=== PATIENT | female | born 1965 | race Caucasian/White ===

== ENCOUNTER → 2016-07-18 | Outpatient (CLI) | payer BC ==
[~2016-07-18] MED LIST: ATV/1 PO; LISI-729 PO
== END | disposition home or self-care (01) ==
LOC: C.RDSM 08:45
PROVIDERS: ATTEND Physical Medicine & Rehabilitation Sports Medicine
DX: S52.252D Displaced comminuted fracture of shaft of ulna, left arm, subsequent encounter for closed fracture with routine healing (principal); S52.36 Segmental fracture of shaft of radius; X58.XXXD Exposure to other specified factors, subsequent encounter

== ENCOUNTER → 2016-08-17 | Outpatient (CLI) | payer BC | END | disposition home or self-care (01) | LOC: C.RDSM 14:56 | PROVIDERS: ATTEND Physical Medicine & Rehabilitation Sports Medicine | DX: S52.252D Displaced comminuted fracture of shaft of ulna, left arm, subsequent encounter for closed fracture with routine healing (principal); X58.XXXD Exposure to other specified factors, subsequent encounter ==

== ENCOUNTER → 2016-11-23 | Outpatient (CLI) | payer BC ==
[~2016-11-23] MED LIST changes: +OPTIRAY 320 IV PRN
--- NOTE | 2016-11-23 12:20 | DIAGNOSTIC IMAGING REPORT ---
CT ABD/PELVIS IV AND ORAL CONT CLINICAL HISTORY: Right lower quadrant abdominal pain COMPARISON STUDY: None. TECHNIQUE: Following the IV administration of 94 mL of Optiray-320, CT scan of the abdomen and pelvis was performed from the lung bases to the proximal femurs. Images are reviewed in the axial, sagittal, and coronal planes. IV contrast was administered without complication. CT DOSE: 250.79 mGy.cm FINDINGS: Lower chest: There is a calcified left lower lobe granuloma. Liver: The contrast-enhanced liver is normal in size, contour, and attenuation. There is no intrahepatic biliary ductal dilatation. The hepatic veins and portal veins are patent. Gallbladder: Unremarkable. Spleen: Normal in size and attenuation. Pancreas: Unremarkable. Adrenal glands: Unremarkable. Kidneys: There is a 4 mm left renal cyst. There is no hydronephrosis. Bowel: There are no transition zones indicate bowel obstruction. The appendix appears normal. There is scattered colonic diverticula. There is no acute diverticulitis. Peritoneum: There is no intraperitoneal free air or abdominal ascites. Vasculature: The abdominal aorta is normal in course and caliber. Adenopathy: None. Pelvic viscera: There is borderline thickening of the endometrium. Skeletal structures: No destructive osseous lesions are seen. IMPRESSION: 1. No evidence of bowel obstruction. No evidence of free air 2. Normal appendix 3. No evidence of acute diverticulitis 4. Borderline thickening of the endometrium. Electronically signed by: Joby Kwon M.D. 11/23/2016 12:19 PM Dictated Date/Time: 11/23/2016 12:14 PM
== END | disposition home or self-care (01) ==
LOC: C.CTS 10:23
PROVIDERS: ATTEND Family Medicine
DX: R10.31 Right lower quadrant pain (principal)

== ENCOUNTER → 2017-05-31 | Outpatient (CLI) | payer BC ==
[~2017-05-31] MED LIST changes: -OPTIRAY 320 IV PRN
--- NOTE | 2017-05-31 14:59 | DIAGNOSTIC IMAGING REPORT ---
LEFT FOREARM 2 VIEWS CLINICAL HISTORY: Follow-up fracture. FINDINGS: AP and lateral views of the left forearm are compared to study dated 08/17/2016. There is disuse osteopenia. There is posttraumatic deformity involving the shafts of the radius and ulna status post buttress plate fixation. The Orthopedic hardware appears intact. No acute fracture is seen. The wrist and elbow joints are grossly maintained. Mild soft tissue swelling is suggested in the forearm. IMPRESSION: Posttraumatic deformity and postoperative change is identified in the radius and ulna as above. No acute fracture is identified. Electronically signed by: Eh Gonzalez M.D. 05/31/2017 2:58 PM Dictated Date/Time: 05/31/2017 2:57 PM
== END | disposition home or self-care (01) ==
LOC: C.RDSM 14:16
PROVIDERS: ATTEND Physician Assistant
DX: S52.36 Segmental fracture of shaft of radius (principal); X58.XXXD Exposure to other specified factors, subsequent encounter

== ENCOUNTER → 2017-06-23 | Outpatient (CLI) | payer OTHER | END | disposition home or self-care (01) | LOC: C.CPL 08:41 | PROVIDERS: ATTEND Physician Assistant | DX: T84.84XA Pain due to internal orthopedic prosthetic devices, implants and grafts, initial encounter (principal); Y83.1 Surgical operation with implant of artificial internal device as the cause of abnormal reaction of the patient, or of later complication, without mention of misadventure at the time of the procedure ==

== ENCOUNTER → 2017-06-27 | Day surgery (SDC) | payer BC, OTHER ==
[2017-06-09 13:17] VITALS: Ht 152.4 cm; Wt 51.4 kg
[~2017-06-27] VITALS: Ht 152.4 cm; Wt 51.4 kg
[~2017-06-27] MED LIST changes: +ATROPINE SULFATE 0.1 MG/ML 5ML SYR IV PRN; +BUPIVACAINE 0.5 % 5 MG/1 ML MPF 30ML VIAL ONE; +BUPIVACAINE/EPINEPHRINE 0.5% MPF 1:200,000 30 ML VIAL ONE; +CEFAZOLIN 2000MG IV PUSH 10 ML IV SCH; +DEXAMETHASONE SOD INJ 4 MG/ML VIAL ONE; +FENTANYL CITRATE INJ 50 MCG/1 ML 2 ML VIAL IV PRN; +FENTANYL CITRATE INJ 50 MCG/1 ML 2 ML VIAL ONE; +KETOROLAC TROMETHAMINE 30 MG/ML VIAL IV. PRN; +LACTATED RINGER'S 1000ML 1,000 ML IV SCH; +LIDOCAINE HCL 2% 2 ML VIAL (20MG/ML) ONE; +MIDAZOLAM HCL 1 MG/ML 2ML VIAL ONE; +ONDANSETRON INJ 2 MG/ML 2 ML VIAL IV PRN; +ONDANSETRON INJ 2 MG/ML 2 ML VIAL ONE; +PROPOFOL IV EMULSION 10 MG/ML 20 ML VIAL IV ONE; +SODIUM CHLORIDE 0.9% 1000ML 1,000 ML IV SCH
--- NOTE | 2017-06-27 09:35 | History & Physical Bridge Note ---
H&P Re-Evaluation Bridge Note: I have examined the patient, reviewed the History & Physical and in the interval since the performance of the History & Physical I have noted the following changes of clinical significance: No changes noted.consent reviewed.
--- NOTE | 2017-06-27 09:37 | Discharge Instructions ---
Discharge Instructions Date of Service Jun 27, 2017. Visit Reason for Visit: S/P Left Both Bone Forearm Fracture Discharge Discharge Diagnosis / Problem: ssame Discharge Goals Goal(s): Decrease discomfort Medications Stopped Medications Name(s): na Restart Stopped Medication(s): use all scripts as directed Activity Recommendations Activity Limitations: resume your previous activity Lifting Limitations: no more than 10 pounds Exercise/Sports Limitations: as tolerated May Resume Sexual Activity: when tolerated Shower/Bathe: keep incision dry Driving or Machine Use: resume 1 day after discharge Anesthesia . Post Anesthesia Instructions: If you have had General Anesthesia or IV Sedation: * Do not drive today. * Resume driving when surgeon permits. * Do not make important decisions or sign legal documents today. * Call surgeon for: 1. Temperature elevations greater than 101 degrees F. 2. Uncontrollable pain. 3. Excessive bleeding. 4. Persistent nausea and vomiting. 5. Medication intolerance (nausea, vomiting or rash). * For nausea and vomiting use only clear liquids such as: tea, soda, bouillon until nausea subsides, then gradually increase diet as tolerated. * If you have any concerns or questions, call your surgeon's office. If physician is unavailable and it is an emergency, call 911 or go to the nearest emergency room. . Instructions / Follow-Up Instructions / Follow-Up DIET: * Resume previous diet. MEDICATIONS: * Please take your prescriptions as instructed at your pre-op appointment and/ or see medication discharge instructions listed above. * If concerns develop, call your physician's office at . SPECIAL CARE INSTRUCTIONS: * Ice/Elevate as instructed. * Keep dressing clean, dry, intact. * Your surgical extremity may be discolored due to prepping agents used on the skin. A bluish-green tint is a normal variant and should not cause alarm. Call your doctor at [phone] if: * Temperature above 101 degrees * Pain not relieved by pain medicine ordered * There is increased drainage or redness from any incision * You have any unanswered questions, problems or concerns. FOLLOW UP VISIT: * If not already scheduled, please call the office at to schedule a follow-up appointment. Diet Recommendations Recommended Home Diet: resume previous diet Procedures Procedures Performed: removal ulnar plate and screws Pending Studies Studies pending at discharge: yes List of pending studies: removed plate Medical Emergencies . Who to Call and When: Medical Emergencies: If at any time you feel your situation is an emergency, please call 911 immediately. . Non-Emergent Contact Non-Emergency issues call your: Specialist Call Non-Emergent contact if: you have a fever, temperature is above 101.5, wound has increased drainage, wound has increased redness, you have any medication questions . . "Provider Documentation" section prepared by Jalen Mclaughlin. .
--- NOTE | 2017-06-27 10:28 | [facility] Post Operative Brief Note ---
Immediate Operative Summary Operative Date Jun 27, 2017. Pre-Operative Diagnosis s/p ORIF displaced ulna fracture Post-Operative Diagnosis same Procedure(s) Performed removal ulnar plate and screws Surgeon verónica Spring Production Supervisor Surgeon(s) alexandra Estimated Blood Loss trace Findings healed ulna fracture Fluids (cc crystalloids) 550cc Specimens plate and screws Drains none Anesthesia LMA Complication(s) None Disposition Recovery Room / PACU
--- NOTE | 2017-06-27 10:46 | [facility] Operative Report ---
Operative Report Operative Date Jun 27, 2017. Pre-Operative Diagnosis Forearm s/p ORIF displaced ulna fracture Post-Operative Diagnosis Left forearm same Procedure(s) Performed removal ulnar plate and screws left forearm Surgeon verónica Nib Adjuster Surgeon(s) alexandra CEBALLOS Estimated Blood Loss trace Findings Retained hardware left ulna Fluids (cc crystalloids) 550cc Specimens plate and screws Drains none Complication(s) None Disposition Recovery Room / PACU Indications This 52-year-old white female presented to the office with complaints of pain in her left forearm associated with her previous plate and screws. She had pain with placement of her arm on any hard surface. She elected to proceed with hardware removal in hopes of alleviating her pain. Description of Procedure Patient was taken to the operating room where she was given local anesthetic and general anesthetic. She was prepped and draped in usual sterile fashion. Please see Dr. Mclaughlin's operative report for specifics of the procedure. I was present for the entire case from initial patient positioning through final wound closure. Assistance was provided in tissue traction, hemostasis, and final wound closure. Patient was taken to the recovery room in satisfactory condition. I attest to the content of the Intraoperative Record and any orders documented therein. Any exceptions are noted below.
--- NOTE | 2017-06-27 10:47 | OPERATIVE REPORT ---
DATE OF OPERATION: 06/27/2017 SURGEON: Jalen Mclaughlin MD BRIM STITCHER: Devin Ruiz PA-C. No resident or fellow available. PREOPERATIVE DIAGNOSIS: Status post open reduction internal fixation both bones forearm fracture with symptomatic ulnar hardware. POSTOPERATIVE DIAGNOSIS: Same. OPERATION PERFORMED: Removal of ulnar plate and screws, left upper extremity. PERIOPERATIVE SITUATION: Medically cleared female who has recurrent irritability of the forearm when she rolls it over a tabletop and contacts the edge of the plate. At this point in time, she wants to proceed with plate removal. The fracture is healed. OPERATION: The patient appropriately identified, site verified, consent verified, 1 gram of Ancef confirmed as being given. The left upper extremity was injected sterilely with roughly 12 mL of 0.5% Marcaine plain and then the arm prepped and draped in usual routine fashion. Tourniquet was then inflated to 250 mmHg after exsanguination of limb with a rubber Esmarch bandage for a total of approximately 12 minutes. The old incision was then opened. Full thickness flaps raised, care taken to protect any sensory nerves. The plate was then palpated and the tissue over the plate was then incised with a thermal device and then lifted off over the plate. All 8 screws were identified. They were then removed, both combination of locking and nonlocking screws. The plate was then removed without difficulty. The prominence of the screw holes were then removed with a rongeur due to the fact that this was also subcutaneous and would give her issues. The wound was then copiously irrigated and then closed with 3-0 Vicryl and 3-0 running Prolene stitch and then a soft tissue dressing applied. The patient's estimated blood loss was trace. Crystalloid was 550 mL. No DVT prophylaxis required. Plate removed, the screws removed. ADDENDUM: The fracture was healed and no sign of any issues clinically. I attest to the content of the Intraoperative Record and any orders documented therein. Any exceptions are noted below. KAMILA
[2017-06-27 11:14] VITALS: BP 109/74; PULSE 59; TEMP 36.4; O2SAT 97
--- NOTE | 2017-06-27 12:01 | Anesthesia Progress Nt - [facility] ---
Anesthesia Post Op Note Date & Time Jun 27, 2017 at 12:00 Vital Signs Pain Intensity: 2 Vital Signs Past 12 Hours Date Time Temp Pulse Resp B/P (MAP) Pulse Ox O2 Delivery O2 Flow Rate FiO2 06/27/17 11:14 36.4 59 16 109/74 (86) 97 Room Air 06/27/17 11:08 67 12 99 06/27/17 11:08 67 12 06/27/17 11:08 67 12 06/27/17 11:08 67 12 99 06/27/17 11:07 63 13 06/27/17 11:07 62 13 98 06/27/17 11:07 36.6 98 Room Air 06/27/17 11:06 109/77 06/27/17 11:02 68 14 97 06/27/17 11:02 69 14 06/27/17 11:01 106/70 06/27/17 10:57 62 11 100 06/27/17 10:57 62 11 06/27/17 10:56 63 16 110/74 100 06/27/17 10:56 63 16 06/27/17 10:56 63 16 06/27/17 10:56 63 16 110/74 100 06/27/17 10:51 65 17 110/69 100 06/27/17 10:51 65 17 110/69 100 06/27/17 10:51 64 17 06/27/17 10:51 64 17 06/27/17 10:46 67 16 108/73 100 06/27/17 10:46 67 16 06/27/17 10:46 67 16 06/27/17 10:46 67 16 108/73 100 06/27/17 10:41 110/73 06/27/17 10:41 110/73 06/27/17 10:37 111/78 06/27/17 10:37 111/78 06/27/17 10:36 75 22 98 06/27/17 10:36 75 22 98 06/27/17 10:36 36.3 70 12 111/78 100 Mask 6 06/27/17 10:36 74 22 06/27/17 10:36 74 22 06/27/17 08:46 36.2 71 16 101/77 (85) 98 Room Air Notes Mental Status: alert / awake / arousable, participated in evaluation Pt Amnestic to Procedure: Yes Nausea / Vomiting: adequately controlled Pain: adequately controlled Airway Patency, RR, SpO2: stable & adequate BP & HR: stable & adequate Hydration State: stable & adequate Anesthetic Complications: no major complications apparent
== END | disposition home or self-care (01) ==
LOC: X.SURG 08:30
PROVIDERS: ATTEND Physical Medicine & Rehabilitation Sports Medicine
DX: T84.84XA Pain due to internal orthopedic prosthetic devices, implants and grafts, initial encounter (principal); W19.XXXA Unspecified fall, initial encounter; Y93.01 Activity, walking, marching and hiking; I10 Essential (primary) hypertension; Z98.51 Tubal ligation status

== ENCOUNTER → 2017-07-07 | Outpatient (CLI) | payer OTHER ==
[~2017-07-07] MED LIST changes: -ATROPINE SULFATE 0.1 MG/ML 5ML SYR IV PRN; -BUPIVACAINE 0.5 % 5 MG/1 ML MPF 30ML VIAL ONE; -BUPIVACAINE/EPINEPHRINE 0.5% MPF 1:200,000 30 ML VIAL ONE; -CEFAZOLIN 2000MG IV PUSH 10 ML IV SCH; -DEXAMETHASONE SOD INJ 4 MG/ML VIAL ONE; -FENTANYL CITRATE INJ 50 MCG/1 ML 2 ML VIAL IV PRN; -FENTANYL CITRATE INJ 50 MCG/1 ML 2 ML VIAL ONE; -KETOROLAC TROMETHAMINE 30 MG/ML VIAL IV. PRN; -LACTATED RINGER'S 1000ML 1,000 ML IV SCH; -LIDOCAINE HCL 2% 2 ML VIAL (20MG/ML) ONE; -MIDAZOLAM HCL 1 MG/ML 2ML VIAL ONE; -ONDANSETRON INJ 2 MG/ML 2 ML VIAL IV PRN; -ONDANSETRON INJ 2 MG/ML 2 ML VIAL ONE; -PROPOFOL IV EMULSION 10 MG/ML 20 ML VIAL IV ONE; -SODIUM CHLORIDE 0.9% 1000ML 1,000 ML IV SCH
--- NOTE | 2017-07-07 11:51 | DIAGNOSTIC IMAGING REPORT ---
L FOREARM 2 VIEWS CLINICAL HISTORY: Painful orthopedic hardware COMPARISON: 05/31/2017 DISCUSSION: There is been interval removal of the left mid radial metallic plate and screws. The ulnar metallic plate and screws remain unchanged in appearance. There are no acute fractures. IMPRESSION: Postsurgical changes involving the radius and ulna with interval removal of the radial metallic plate and screws. Electronically signed by: Joby Kwon M.D. 07/07/2017 11:50 AM Dictated Date/Time: 07/07/2017 11:49 AM
== END | disposition home or self-care (01) ==
LOC: C.RDSM 11:40
PROVIDERS: ATTEND Physician Assistant
DX: T84.84XA Pain due to internal orthopedic prosthetic devices, implants and grafts, initial encounter (principal); X58.XXXA Exposure to other specified factors, initial encounter